=== PATIENT | male | born 1940 | race Caucasian/White ===

== ENCOUNTER 2024-10-30 15:08 | Emergency (ER) | payer MEDICARE, SELFPAY ==
--- NOTE | 2024-10-30 15:11 | ED.SKABFB ---
HPI - Skin/Abscess/Foreign Bdy General Chief complaint: Skin/Abscess/Foreign Body Stated complaint: RASH Time Seen by Provider: 10/30/24 15:21 Source: patient, RN notes reviewed and old records reviewed Mode of arrival: ambulatory Limitations: no limitations History of Present Illness HPI narrative: 84-year-old male presents to the [facility] with a family member. Family member and patient is concerned he might have insect bites. Very dry skin noted to the forearms, areas of scabbed over areas. Recently moved to this area. Related Data Home Medications ?Medication ?Instructions ?Recorded ?Confirmed ?Last Taken ?Type atorvastatin 40 mg tablet (Lipitor) 40 mg PO DAILY 10/30/24 10/30/24 Unknown History hydrochlorothiazide 25 mg tablet 25 mg PO DAILY 10/30/24 10/30/24 Unknown History lisinopril 40 mg tablet 40 mg PO DAILY 10/30/24 10/30/24 Unknown History metoprolol succinate 50 mg capsule 50 mg PO DAILY 10/30/24 10/30/24 Unknown History sprinkle, ext. release 24 hr (Kapspargo Sprinkle) Allergies Allergy/AdvReac Type Severity Reaction Status Date / Time No Known Allergies Allergy Verified 10/30/24 15:25 Review of Systems Review of Systems: All systems reviewed & are unremarkable except as noted in HPI and below Constitutional: Constitutional: Reports no additional constitutional complaints ENT: Reports system reviewed and no additional complaints, except as documented Cardiovascular: Cardiovascular: Reports no additional cardiovascular complaints, Denies chest pain and Denies dyspnea Respiratory: Respiratory: Reports no additional respiratory complaints, Denies chest congestion, Denies cough and Denies dyspnea Musculoskeletal: Musculoskeletal: Reports no additional musculoskeletal complaints Integumentary/Breasts: Skin/Breast: Reports as per HPI PMFSH Comments At the time of my signature, I reviewed and agree with the nursing past medical, surgical, social, and family history. There is no relevant family history pertinent to the patient complaint. Exam Const: General: cooperative, comfortable, no acute distress, well developed, alert, ill appearing chronically and well nourished Nutritional Appearance: well nourished Orientation/consciousness: patient oriented x3 Limitations: no limitations HENMT: Head: normal to inspection Eyes: General: appearance normal, both eyes and all related structures Alignment and Position: alignment normal Neck: Neck: normal visual inspection, full ROM, no lymphadenopathy and no meningeal signs Chest: Chest palpation & inspection: normal inspection of the chest Resp: Effort & Inspection: normal respiratory effort and able to speak in complete sentences Cardio: Rate: regular rate Skin: General skin exam: normal color and no rashes or lesions noted Lesions: lesion noted Other: Very dry skin noted, some scabbed lesions noted to the forearms unlikely from insect bites most likely eczema. Neuro: General: patient oriented x3, gait normal, moves all extremities and no meningeal signs Cognition (Neuro): normal cognition Speech: normal speech Gait exam (Neuro): Normal gait present Extrem: General: normal to inspection, full ROM, capillary refill normal and normal gait Psych: Appearance: grossly normal and well kempt Mental Status: mental status grossly normal Speech and movement: Normal speech and movement present and Clear speech present Affect: normal affect Attitude: cooperative Course Course Level of Care: Express Care Visit Vital Signs Vital signs: Vital Signs Temperature 97.6 F 10/30/24 15:20 Pulse Rate 60 10/30/24 15:20 Respiratory Rate 16 10/30/24 15:20 Blood Pressure 147/62 H 10/30/24 15:20 Pulse Oximetry 98 10/30/24 15:20 Temperature 97.6 F 10/30/24 15:20 Pulse Rate 60 10/30/24 15:20 Respiratory Rate 16 10/30/24 15:20 Blood Pressure 147/62 H 10/30/24 15:20 Pulse Oximetry 98 10/30/24 15:20 Reviewed MDM - Skin/Abscess/Foreign Bdy MDM Narrative Medical decision making narrative: Patient sitting in exam room patient is nontoxic, vitals are stable. Patient is due to see a new primary care provider this week. Areas of concern are unlikely to be from insect bites most likely from scratching due to itchy dry skin. Patient appropriate for outpatient treatment with follow-up Discharge instructions reviewed with patient, as well as provided in writing per nursing staff. The instructions also include specific and strict return/GO TO THE ER as well as f/u information. All questions have been answered, and the patient deny any further questions with discharge and discharge plan. Some parts of this dictation were generated by voice recognition software and may contain typographical and/or grammatical inaccuracies. Differential Diagnosis Differential diagnosis: Likely viral exanthem, urticaria, cellulitis, eczema, insect bites, impetigo and contact dermatitis Critical Care Time Critical Care Time Critical Care Time: No Discharge Plan Discharge Clinical Impression: Dry skin, Eczema Patient Disposition: Home Condition: Stable Instructions: Antibiotic Form, Eczema (ED) Additional Instructions: apply a good moisturizing lotion such as Aveeno, Aquaphor or Eucerin apply hydrocortisone cream to the itchy areas. Follow-up with the primary care provider for further evaluation, testing and treatment Patient Language: Mohawk Prescriptions: No Action atorvastatin [Lipitor] 40 mg tablet 40 mg PO DAILY Kapspargo Sprinkle 50 mg capsule,sprinkle,ER 24hr 50 mg PO DAILY lisinopril 40 mg tablet 40 mg PO DAILY hydrochlorothiazide 25 mg tablet 25 mg PO DAILY Follow-up/Referrals: UNKNOWN,DOCTOR [Non-Staff] - Time of Disposition: 15:35
[2024-10-30 15:20] VITALS: BP 147/62; PULSE 60; RESP 16; TEMP 36.4; O2SAT 98
== END 2024-10-30 15:45 | disposition home or self-care (01) ==
PROVIDERS: Emergency Provider Nurse Practitioner
DX: L85.3 Xerosis cutis (principal); L30.9 Dermatitis, unspecified; I10 Essential (primary) hypertension; E78.00 Pure hypercholesterolemia, unspecified
CPT/HCPCS: 99202; G0463